=== PATIENT | female | born 1990 | race Caucasian/White ===

== ENCOUNTER 2017-11-26 12:28 | Emergency (ER) | payer SELFPAY ==
--- NOTE | 2017-11-26 13:08 | RAD REPORT ---
EXAM DESCRIPTION: RAD - Chest Single View - 11/26/2017 1:03 pm CLINICAL HISTORY: Chest pain. COMPARISON: None. FINDINGS: Portable technique limits examination quality. The lungs are grossly clear. The heart is normal in size. No displaced fractures. IMPRESSION: No acute intrathoracic process suspected.
[2017-11-26 13:57] LABS: Potassium 3.8 mEq/L (3.6-5.0)
[2017-11-26 14:00] LABS: Albumin 4.3 g/dL (3.2-5.5); Bilirubin Total 0.4 mg/dL (0.3-1.2); Protein, Total 7.3 g/dL (6.0-8.3)
[2017-11-26 15:51] LABS: Absolute Lymphocytes (CBC) 4.1 K/uL (0.7-4.9); Absolute Monocytes 0.7 K/uL (0.1-1.3); Absolute Neutrophil 4.1 K/uL (1.8-8.0); Basophils % 0.4 % (0-1.3); Eosinophils % 5.1 % (0-4.4); Hematocrit 42.3 % (36.0-45.0); Lymphocytes % 43.6 % (15.3-44.8); MCH 29.2 pg (27.0-35.0); MCV 89.4 fL (80-100); MPV 10.4 fL (7.6-11.3); Monocytes % 7.4 % (3.3-12.3); RBC Red Blood Cell Count 4.74 M/uL (3.86-4.86)
--- NOTE | 2017-11-26 15:55 | EDPHYS ---
Physician Documentation [facility] Name: Dixie Amaya Age: 27 yrs Sex: Female : 1990 Arrival Date: 11/26/2017 Time: 12:30 Bed 15 Private MD: ED Physician Neymar Villafuerte HPI: 11/26 15:47 This 27 yrs old Female presents to ER via EMS with complaints of Chest Pain. pm1 15:47 The patient or guardian reports chest pain that is located primarily in the anterior pm1 chest wall, left, anterior aspect of left upper chest and left breast. The pain does not radiate. Associated signs and symptoms: Pertinent negatives: abdominal pain, cough, diaphoresis, dizziness, headache, nausea, shortness of breath, vomiting. The chest pain is described as sharp. Duration: The patient or guardian reports a single episode. Modifying factors: The symptoms are alleviated by Placing hand on areas of pain on chest. the symptoms are aggravated by nothing. Severity of pain: in the emergency department the pain is unchanged. The patient has not experienced similar symptoms in the past. 15:47 Chest pain this AM onset at 0800. Constant since then. Patient currently at [place] [id number] for methamphetamine abuse for the past 1 year. 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 - Social history:: Smoking status: Patient uses tobacco products, smokes one pack cigarettes per day. Patient uses street drugs, Methamphetamine (Meth). ROS: 15:47 Constitutional: Negative for fever, chills, and weight loss, Eyes: Negative for injury, pm1 pain, redness, and discharge, ENT: Negative for injury, pain, and discharge, Neck: Negative for injury, pain, and swelling. 15:47 Respiratory: Negative for shortness of breath, cough, wheezing, and pleuritic chest pain, Abdomen/GI: Negative for abdominal pain, nausea, vomiting, diarrhea, and constipation, Back: Negative for injury and pain, : Negative for injury, bleeding, discharge, and swelling, MS/Extremity: Negative for injury and deformity, Skin: Negative for injury, rash, and discoloration, Neuro: Negative for headache, weakness, numbness, tingling, and seizure. 15:47 Cardiovascular: Positive for chest pain, Negative for edema, palpitations. Exam: 15:47 Constitutional: This is a well developed, well nourished patient who is awake, alert, pm1 and in no acute distress. Head/Face: Normocephalic, atraumatic. Eyes: Pupils equal round and reactive to light, extra-ocular motions intact. Lids and lashes normal. Conjunctiva and sclera are non-icteric and not injected. Cornea within normal limits. Periorbital areas with no swelling, redness, or edema. ENT: Nares patent. No nasal discharge, no septal abnormalities noted. Tympanic membranes are normal and external auditory canals are clear. Oropharynx with no redness, swelling, or masses, exudates, or evidence of obstruction, uvula midline. Mucous membranes moist. Neck: Trachea midline, no thyromegaly or masses palpated, and no cervical lymphadenopathy. Supple, full range of motion without nuchal rigidity, or vertebral point tenderness. No Meningismus. 15:47 Cardiovascular: Regular rate and rhythm with a normal S1 and S2. No gallops, murmurs, or rubs. Normal PMI, no JVD. No pulse deficits. Respiratory: Lungs have equal breath sounds bilaterally, clear to auscultation and percussion. No rales, rhonchi or wheezes noted. No increased work of breathing, no retractions or nasal flaring. Abdomen/GI: Soft, non-tender, with normal bowel sounds. No distension or tympany. No guarding or rebound. No evidence of tenderness throughout. Back: No spinal tenderness. No costovertebral tenderness. Full range of motion. Skin: Warm, dry with normal turgor. Normal color with no rashes, no lesions, and no evidence of cellulitis. MS/ Extremity: Pulses equal, no cyanosis. Neurovascular intact. Full, normal range of motion. 15:47 Chest/axilla: Inspection: normal, Palpation: improves area of chest pain per patient to left anterior wall. 15:47 Neuro: Orientation: is normal, Motor: moves all fours, Gait: is steady, at a normal pace, without difficulty. Vital Signs: 12:34 BP 119 / 76; Pulse 86; Resp 18; Temp 97.7; Pulse Ox 100% on R/A; Weight 74.84 kg; ph Height 5 ft. 1 in. (154.94 cm); Pain 10/10; 14:09 BP 116 / 75; Pulse 77; Resp 18; Pulse Ox 100% on R/A; ph 15:25 BP 115 / 78; Pulse 78; Resp 18; Pulse Ox 99% on R/A; ph 12:34 Body Mass Index 31.18 (74.84 kg, 154.94 cm) ph MDM: 12:32 Patient medically screened. pm1 15:47 Data reviewed: vital signs. Data interpreted: Pulse oximetry: on room air is 99 %. pm1 Interpretation: normal. Counseling: I had a detailed discussion with the patient and/or guardian regarding: the historical points, exam findings, and any diagnostic results supporting the discharge/admit diagnosis, lab results, radiology results, the need for outpatient follow up, to return to the emergency department if symptoms worsen or persist or if there are any questions or concerns that arise at home. 11/26 12:44 Order name: Basic Metabolic Panel pm1 11/26 12:44 Order name: CBC with Diff; Complete Time: 16:32 pm11/26 12:44 Order name: Troponin (emerg Dept Use Only); Complete Time: 15:06 pm11/26 12:44 Order name: XRAY Chest (1 view); Complete Time: 13:17 pm11/26 12:44 Order name: EKG; Complete Time: 12:45 pm11/26 12:44 Order name: CMP; Complete Time: 15:06 pm11/26 12:44 Order name: Cardiac monitoring; Complete Time: 14:42 pm11/26 12:44 Order name: EKG - Nurse/Tech; Complete Time: 14:37 pm11/26 12:44 Order name: Labs collected and sent; Complete Time: 14:42 pm11/26 12:44 Order name: O2 Per Protocol; Complete Time: 14:37 pm11/26 12:44 Order name: O2 Sat Monitoring; Complete Time: 14:37 pm11/26 14:08 Order name: Labs - recollect needed; Complete Time: 14:42 bd Administered Medications: No medications were administered Disposition: 11/27 10:53 Co-signature as Attending Physician, Neymar Villafuerte MD I agree with the assessment and sav plan of care. Disposition: 11/26/17 15:54 Discharged to Home. Impression: Chest pain, unspecified. - Condition is Stable. - Discharge Instructions: Nonspecific Chest Pain. - Medication Reconciliation Form, Thank You Letter form. - Follow up: Emergency Department; When: As needed; Reason: Worsening of condition. Follow up: Private Physician; When: 2 - 3 days; Reason: Recheck today's complaints, Continuance of care, Re-evaluation by your physician. - Problem is new. - Symptoms have improved. Signatures: Dispatcher [employer] EDMS Caitlyn Deshpande Corey, MD MD cha Hall, Patricia, RN RN ph Byron Mayfield, ANTONIO TELLER HEAD pm1 Corrections: (The following items were deleted from the chart) 11/26 16:52 15:54 11/26/2017 15:54 Discharged to Home. Impression: Chest pain, unspecified. ph Condition is Stable. Forms are Medication Reconciliation Form, Thank You Letter, Antibiotic Education, Prescription Opioid Use. Follow up: Emergency Department; When: As needed; Reason: Worsening of condition. Follow up: Private Physician; When: 2 - 3 days; Reason: Recheck today's complaints, Continuance of care, Re-evaluation by your physician. Problem is new. Symptoms have improved. pm1
--- NOTE | 2017-11-26 15:55 | ER ---
Nurse's Notes [facility] Name: Dixie Amaya Age: 27 yrs Sex: Female : 1990 Arrival Date: 11/26/2017 Time: 12:30 Bed 15 Private MD: Diagnosis: Chest pain, unspecified Presentation: 11/26 12:30 Presenting complaint: EMS states: Pt admitted to [facility] at around 1100 yesterday ph for use of methamphetamine, admits to using yesterday at 1030, c/o chest tingling that began today, VSS en route to ED. Transition of care: patient was not received from another setting of care. Onset of symptoms was November 26, 2017. Initial Sepsis Screen: Does the patient meet any 2 criteria? No. Patient's initial sepsis screen is negative. Does the patient have a suspected source of infection? No. Patient's initial sepsis screen is negative. Care prior to arrival: None. 12:30 Method Of Arrival: EMS: [facility] ph 12:30 Acuity: JEFF 3 ph Triage Assessment: 12:37 General: Appears in no apparent distress. comfortable, Behavior is calm, cooperative, ph Denies fever, feeling ill. Pain: Complains of pain in anterior aspect of right upper chest, anterior aspect of left upper chest and mid-sternal area Pain does not radiate. Pain currently is 10 out of 10 on a pain scale. Quality of pain is described as tingling. Neuro: Level of Consciousness is awake, alert, obeys commands, Oriented to person, place, time, situation. Cardiovascular: Reports chest pain, shortness of breath, Denies lightheadedness, nausea, palpitations, syncope, vomiting, Capillary refill < 3 seconds in bilateral fingers Patient's skin is warm and dry. Chest pain quality is "tingling". Respiratory: Airway is patent Respiratory effort is even, unlabored. Derm: Skin is intact, is healthy with good turgor, Skin is pink, warm \\T\\ dry. Musculoskeletal: Circulation, motion, and sensation intact. Range of motion: intact in all extremities. 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 - Social history:: Smoking status: Patient uses tobacco products, smokes one pack cigarettes per day. Patient uses street drugs, Methamphetamine (Meth). Screenin:36 Abuse screen: Denies threats or abuse. Denies injuries from another. Nutritional ph screening: No deficits noted. Tuberculosis screening: No symptoms or risk factors identified. Fall Risk None identified. Assessment: 12:40 General: no changes from previous assessment, see triage note. Pain: Complains of pain ph in chest. 14:08 Reassessment: Patient appears in no apparent distress at this time. Patient and/or ph family updated on plan of care and expected duration. Pain level reassessed. Patient is alert, oriented x 3, equal unlabored respirations, skin warm/dry/pink. Pt resting quietly, awaiting lab and radiology results. 15:24 Reassessment: Patient appears in no apparent distress at this time. Patient and/or ph family updated on plan of care and expected duration. Pain level reassessed. Patient is alert, oriented x 3, equal unlabored respirations, skin warm/dry/pink. Pt resting quietly, awaiting lab results. 15:27 Reassessment: Patient appears in no apparent distress at this time. Pt ambulated to restroom with steady gait, urine sample obtained. Vital Signs: 12:34 BP 119 / 76; Pulse 86; Resp 18; Temp 97.7; Pulse Ox 100% on R/A; Weight 74.84 kg; ph Height 5 ft. 1 in. (154.94 cm); Pain 10/10; 14:09 BP 116 / 75; Pulse 77; Resp 18; Pulse Ox 100% on R/A; ph 15:25 BP 115 / 78; Pulse 78; Resp 18; Pulse Ox 99% on R/A; ph 12:34 Body Mass Index 31.18 (74.84 kg, 154.94 cm) ph ED Course: 12:30 Patient arrived in ED. ph 12:31 Byron Mayfield NP is PHCP. pm1 12:31 Neymar Villafuerte MD is Attending Physician. pm1 12:33 Triage completed. ph 12:39 Patient has correct armband on for positive identification. Placed in gown. Bed in low ph position. Call light in reach. Side rails up X 1. hydrogeology professor on. Pulse ox on. NIBP on. Warm blanket given. 12:39 Arm band placed on. ph 12:39 Patient maintains SpO2 saturation greater than 95% on room air. ph 13:03 X-ray completed. Portable x-ray completed in exam room. Patient tolerated procedure sw well. 13:04 XRAY Chest (1 view) In Process Unspecified. EDMS 14:08 Mayra Theodore, RN is Primary Nurse. ph 14:13 EKG done, by farm equipment technician. reviewed by Neymar Villafuerte MD. dt2 15:29 No provider procedures requiring assistance completed. ph Administered Medications: No medications were administered Outcome: 15:54 Discharge ordered by MD. pm1 16:52 Patient left the ED. ph Signatures: Dispatcher [employer] EDPR Mayra Theodore, RN RN Jane Gomez Patrick, ANTONIO SUPERVISOR [employer] pm1 aSra No dt2
--- NOTE | 2017-11-27 10:31 | EKG ---
Test Date: 2017-11-26 Test Time: 13:28:52 Agronomy Teacher: DANYELLE MEASUREMENT RESULTS: Intervals: Rate: 77 TN: 154 QRSD: 80 QT: 394 QTc: 445 [place]: P: 62 TN: 154 QRS: 78 T: 72 INTERPRETIVE STATEMENTS: Normal sinus rhythm Normal ECG No previous ECG available for comparison Electronically Signed On 11-27-17 10:27:29 CDT by Noé Stuart
== END 2017-11-26 16:52 | disposition home or self-care (01) ==
LOC: ER 12:28
DX: R07.9 Chest pain, unspecified (principal); F17.210 Nicotine dependence, cigarettes, uncomplicated; F19.90 Other psychoactive substance use, unspecified, uncomplicated
CPT/HCPCS: 36415; 71045; 80053; 84484; 85025; 93005; 99285